=== PATIENT | male | born 1980 | race Caucasian/White ===

== ENCOUNTER 2018-05-27 18:34 | Emergency (ER) | payer OTHER ==
[2018-05-27 18:54] VITALS: RESP 18
--- NOTE | 2018-05-27 20:08 | ED ---
Abdominal Pain HPI - General Source: patient, RN notes reviewed Mode of arrival: ambulatory Limitations: no limitations <Junie Metzger - Last Filed: 05/27/18 21:36> <Suha Holguin - Last Filed: 05/28/18 02:38> - General Chief Complaint: Abdominal Pain Stated Complaint: eilostomy bag leaking Time Seen by Provider: 05/27/18 20:01 - History of Present Illness Initial Comments: This is a 37-year-old male who presents to the emergency department with chief complaint of ileostomy problem. Patient states that he has had an ileostomy for the past 2 years for Crohn's disease. He states that he was released from senior care last night and he is out of his ileostomy supplies. He states that today his bag began leaking. Patient requests a new bag and also contact information and addresses for local homeless shelters. Patient denies any fevers or chills , chest pain or shortness of breath, abdominal pain, nausea or vomiting. (Junie Metzger) - Related Data Home Medications Medication Instructions Recorded Confirmed Acetaminophen [Tylenol] 1,000 mg PO Q8H PRN 05/27/18 05/27/18 Mirtazapine [Remeron] 15 mg PO HS 05/27/18 05/27/18 OLANZapine [ZyPREXA] 5 mg PO DAILY 05/27/18 05/27/18 OLANZapine [ZyPREXA] 20 mg PO HS 05/27/18 05/27/18 Sertraline HCl [Zoloft] 100 mg PO DAILY 05/27/18 05/27/18 Sertraline HCl [Zoloft] 200 mg PO DAILY 05/27/18 05/27/18 Valproic Acid (As Sodium Salt) 500 mg PO BID 05/27/18 05/27/18 [Valproic Acid] busPIRone HCl [Buspar] 10 mg PO BID 05/27/18 05/27/18 traZODone HCL [Desyrel] 100 mg PO HS 05/27/18 05/27/18 Allergies Allergy/AdvReac Type Severity Reaction Status Date / Time No Known Allergies Allergy Verified 05/27/18 20:04 Review of Systems ROS Other: All systems not noted in ROS Statement are negative. <Junie Metzger - Last Filed: 05/27/18 21:36> ROS Other: All systems not noted in ROS Statement are negative. <Suha Holguin P - Last Filed: 05/28/18 02:38> ROS Statement: Those systems with pertinent positive or pertinent negative responses have been documented in the HPI. Past Medical History Additional Past Medical History / Comment(s): chron's History of Any Multi-Drug Resistant Organisms: None Reported Past Surgical History: Bowel Resection Additional Past Surgical History / Comment(s): ostomy Past Psychological History: Anxiety, Bipolar, Depression, PTSD Smoking Status: Current every day smoker Past Alcohol Use History: Daily Past Drug Use History: Marijuana <Junie Metzger - Last Filed: 05/27/18 21:36> General Exam Limitations: no limitations <Junie Mtezger - Last Filed: 05/27/18 21:36> <Suha Holguin P - Last Filed: 05/28/18 02:38> - General Exam Comments Initial Comments: General: Awake and alert, well-developed; in no apparent distress. HEENT: Head atraumatic, normocephalic. Pupils are equal, round and reactive to light. Extraocular movements intact. Oropharynx moist without erythema or exudate. Neck: Supple. Normal ROM. Cardiovascular: Regular rate and rhythm. No murmurs, rubs or gallops. Chest symmetrical. Respiratory: Lungs clear to auscultation bilaterally. No wheezes, rales or rhonchi. Normal respiratory effort with no use of accessory muscles. Abdomen: Soft, mildy distended. Leaking and non-intact ileostomy bag mid-left abdomen. Stoma is red. Musculoskeletal: Normal ROM, no tenderness bilateral upper and lower extremities. Ambulating normally. Skin: [place], warm and dry without rashes or lesions. Neurological: Alert and oriented x3. CN II-XII grossly intact. Speech is fluent and answers are appropriate. No focal neuro deficits. Psychiatric: Normal mood and affect. No overt signs of depression or anxiety noted. (Junie Metzger) Vital Signs 05/27/18 05/27/18 18:50 21:20 Temperature 98.7 F 97.9 F Pulse Rate 85 93 Respiratory 18 18 Rate Blood Pressure 108/75 113/71 O2 Sat by Pulse 98 96 Oximetry Medical Decision Making <Junie Metzger - Last Filed: 05/27/18 21:36> <Suha Holguin - Last Filed: 05/28/18 02:38> - Medical Decision Making This is a 37-year-old male who presents to the emergency department with chief complaint of ileostomy problem. Patient was released from senior care yesterday and does not have ileostomy supplies. He states that his bag started leaking today. A new bag was provided to patient. It is clean, dry and intact. He is in no acute distress and will be discharged home at this time. He is in agreement and voices understanding. All questions were answered. (Junie Metzger) I was available for consultation in the emergency department. The history and physical exam were done by the midlevel provider. I was consulted for this patient's care. I reviewed the case with the midlevel provider and based on their presentation of the patient, I agree with the assessment, medical decision making and plan of care as documented. (Suha Holguin) Disposition Is patient prescribed a controlled substance at d/c from ED?: No Time of Disposition: 21:39 <Junie Metzger - Last Filed: 05/27/18 21:36> <Suha Holguin - Last Filed: 05/28/18 02:38> Clinical Impression: Ileostomy bag changed Disposition: HOME SELF-CARE Condition: Good Instructions: Ileostomy Care (ED) Additional Instructions: Please follow up with primary care provider within 1-2 days. Return to emergency department if symptoms should worsen or any concerns arise. Referrals: None,Stated [REFERRING] - 1-2 days
[2018-05-27 21:26] VITALS: BP 113/71; PULSE 93; TEMP 97.9
== END 2018-05-27 22:03 | disposition home or self-care (01) ==
LOC: EC 18:34
DX: K94.13 Enterostomy malfunction (principal); R14.0 Abdominal distension (gaseous); K50.90 Crohn's disease, unspecified, without complications; F31.9 Bipolar disorder, unspecified; F41.9 Anxiety disorder, unspecified; F43.10 Post-traumatic stress disorder, unspecified; F17.200 Nicotine dependence, unspecified, uncomplicated; Z79.899 Other long term (current) drug therapy; Z90.49 Acquired absence of other specified parts of digestive tract
CPT/HCPCS: 99283

== ENCOUNTER 2018-05-28 17:54 | Emergency (ER) | payer OTHER ==
[2018-05-28 18:08] VITALS: BP 99/67; PULSE 110; RESP 18; TEMP 98.7
--- NOTE | 2018-05-28 20:23 | ED ---
General Adult HPI - General Chief complaint: ENT Stated complaint: Sore Throat, losing his voice Time Seen by Provider: 05/28/18 18:14 Source: patient, RN notes reviewed Mode of arrival: ambulatory Limitations: no limitations - History of Present Illness Initial comments: 37 -year-old male presents to the emergency department for a chief complaint of losing his voice. Patient states he slept outside last night and his voice has been raspy since that time. Patient denies cough. Patient denies any ear pain. Patient denies throat pain. Patient denies any fevers or chills. Patient denies any difficulty swallowing or drinking. Patient denies any swelling of the neck. Patient states he just wants to go home and drink his soup. Patient also states that his colostomy bag is leaking. He states he does not have supplies at home for this. Patient has had Crohn's for the past 20 years and does not have any additional pain or new onset pain today. Patient has no other complaints at this time including shortness of breath, chest pain, abdominal pain, nausea or vomiting, headache, or visual changes. - Related Data Home Medications Medication Instructions Recorded Confirmed Acetaminophen [Tylenol] 1,000 mg PO Q8H PRN 05/27/18 05/28/18 Mirtazapine [Remeron] 15 mg PO HS 05/27/18 05/28/18 OLANZapine [ZyPREXA] 5 mg PO DAILY 05/27/18 05/28/18 OLANZapine [ZyPREXA] 20 mg PO HS 05/27/18 05/28/18 Sertraline HCl [Zoloft] 100 mg PO DAILY 05/27/18 05/28/18 Sertraline HCl [Zoloft] 200 mg PO DAILY 05/27/18 05/28/18 Valproic Acid (As Sodium Salt) 500 mg PO BID 05/27/18 05/28/18 [Valproic Acid] busPIRone HCl [Buspar] 10 mg PO BID 05/27/18 05/28/18 traZODone HCL [Desyrel] 100 mg PO HS 05/27/18 05/28/18 Allergies Allergy/AdvReac Type Severity Reaction Status Date / Time No Known Allergies Allergy Verified 05/28/18 18:08 Review of Systems ROS Statement: Those systems with pertinent positive or pertinent negative responses have been documented in the HPI. ROS Other: All systems not noted in ROS Statement are negative. Past Medical History Additional Past Medical History / Comment(s): chron's History of Any Multi-Drug Resistant Organisms: None Reported Past Surgical History: Bowel Resection Additional Past Surgical History / Comment(s): ostomy Past Psychological History: Anxiety, Bipolar, Depression, PTSD Smoking Status: Current every day smoker Past Alcohol Use History: Daily Past Drug Use History: Marijuana General Exam Limitations: no limitations General appearance: alert, in no apparent distress Head exam: Present: atraumatic, normocephalic, normal inspection Eye exam: Present: normal appearance, PERRL, EOMI. Absent: scleral icterus, conjunctival injection, periorbital swelling ENT exam: Present: normal exam, normal oropharynx (Uvula midline, not erythematous, no tonsillar exudates noted bilaterally), mucous membranes moist, TM's normal bilaterally, normal external ear exam Neck exam: Present: normal inspection, full ROM. Absent: tenderness, meningismus, lymphadenopathy Respiratory exam: Present: normal lung sounds bilaterally. Absent: respiratory distress, wheezes, rales, rhonchi, stridor Cardiovascular Exam: Present: regular rate, normal rhythm, normal heart sounds. Absent: systolic murmur, diastolic murmur, rubs, gallop, clicks GI/Abdominal exam: Present: soft, normal bowel sounds, other (Patient does have a colostomy in place. It does appear to be leaking stool somewhat.). Absent: distended, tenderness, guarding, rebound, rigid Neurological exam: Present: alert, oriented X3, CN II-XII intact Psychiatric exam: Present: normal affect, normal mood. Absent: homicidal ideation, suicidal ideation Course Vital Signs 05/28/18 18:04 Temperature 98.7 F Pulse Rate 110 H Respiratory 18 Rate Blood Pressure 99/67 O2 Sat by Pulse 99 Oximetry Medical Decision Making - Medical Decision Making 37-year-old well-appearing male presents to the emergency department for a chief complaint of losing his voice. Patient was initially anxious about his colostomy bag leaking which was likely the cause of his high heart rate. Patient states this started yesterday. Patient denies sore throat. Patient denies cough, congestion, or ear pain. Patient denies any fevers or chills. Afebrile on exam. On exam patient is nontoxic, well-appearing. He is cooperative and pleasant. Throat appears nonerythematous but strep culture was obtained. Rapid strep was negative. Lungs are clear to auscultation bilaterally, patient denies cough. Colostomy bag was replaced with a new colostomy bag. No abdominal tenderness. Patient refused repeat vitals on discharge and states he just wants to go home. Discussed staying hydrated and following up with primary care. Patient does have a place to go tonight and has a hotel paid for already. Patient also has a friend here with him in the emergency department. - Lab Data Lab Results 05/28/18 Range/Units 18:51 Group A Strep Rapid Negative (Negative) Disposition Clinical Impression: Acute viral pharyngitis, Laryngitis Disposition: HOME SELF-CARE Condition: Good Instructions: Laryngitis (ED) Additional Instructions: Please follow up with primary care in 1-2 days. Return to the emergency department if you have any worsening symptoms. Is patient prescribed a controlled substance at d/c from ED?: No Referrals: Micah Claros DO [Primary Care Provider] - 1-2 days Time of Disposition: 20:23
== END 2018-05-28 20:30 | disposition home or self-care (01) ==
LOC: EC 17:54
DX: J02.9 Acute pharyngitis, unspecified (principal); J04.0 Acute laryngitis; F31.9 Bipolar disorder, unspecified; F43.10 Post-traumatic stress disorder, unspecified; F17.200 Nicotine dependence, unspecified, uncomplicated; Z79.899 Other long term (current) drug therapy; Z93.3 Colostomy status
CPT/HCPCS: 87081; 87430; 99283